=== PATIENT | female | born 1930 | race Caucasian/White ===

== ENCOUNTER 2018-11-28 18:20 | Inpatient (IN) | payer MEDICARE, OTHER ==
--- NOTE | 2018-11-28 18:30 | ED Physician Documentation ---
Fall - HISTORIAN Historian: patient - HPI Stated Complaint: fall at skilled nursing Chief Complaint: Fall Onset: just prior to arrival Where: home Context: other (they are not sure - lost balance ) Associated Symptoms:: no loss of consciousness Location of Pain/Injury: head, L shoulder Injury to Right Extremity: none Further Comments: yes (The skilled nursing calling report - states she started with confusion today. She was thought to have a possible UTI. The skilled nursing states she has no fever or other issues. She fell in room hit her head they did not witness any LOC) - ROS CONST: no problems GI/: denies: nausea, vomiting - PAST HX Past History: cardiac disease, diabetes Type 2 Allergies/Adverse Reactions: Allergies Allergy/AdvReac Type Severity Reaction Status Date / Time No Known Allergies Allergy Verified 11/28/18 18:32 Home Medications: Ambulatory Orders Medication Instructions Recorded Diltiazem HCl [Diltiazem 24Hr ER] 1 cap PO DAILY 06/16/15 Gabapentin 100 mg PO QID 06/16/15 Metoprolol Tartrate [Lopressor] 12.5 mg PO BID 06/16/15 Rivaroxaban [Xarelto] 15 mg PO BID 06/16/15 Acetaminophen [Tylenol 8 Hour] 1 tab PO PRN PRN 11/28/18 Ondansetron [Zuplenz] 1 tab PO PRN PRN 11/28/18 - SOCIAL HX Smoking History: non-smoker Alcohol Use: none Drug Use: none - FAMILY HX Family History: none - VITAL SIGNS Vital Signs: Vital Signs Temp Pulse Resp BP Pulse Ox 118/96 06/16/15 11:48 - REVIEWED ASSESSMENTS Nursing Assessment Reviewed: Yes Vitals Reviewed: Yes Progress - Progress Progress: 2140: discussed case with Dr Pastor will admit pt due to age, fall, and UTI (elevated WBC and Lactate) DG ED Results Lab/Radiology - Radiology Radiology Impressions: CT Brain without Contrast History: Fall. Technique: Transaxial CT was performed without contrast from the skull base to the vertex. Findings: Scattered bilateral white matter hypodensity is present, consistent with gliosis. Mild cerebral atrophy is present. The lateral ventricles are mildly dilated. No hemorrhage or edema-producing mass. The fourth ventricle is midline. Encephalomalacia seen in the left cerebellum. The paranasal sinuses are clear. No skull fracture. The mastoid air cells are well developed and well aerated. Impression: 1. 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 2. No acute cerebral pathology. Left shoulder,, three views History: Pain after fall. Findings: The osseous structures are intact without fracture. The humeral head is well seated within the glenoid fossa with narrowing the glenohumeral and acromioclavicular joints. A cardiac device present superimposed in the left chest wall. Impression: 1. No acute osseous abnormality. 2. Osteoarthritis. Electronically signed on Nov 28, 2018 6:56:38 PM FIBERGLASS DOWEL DRAWING OPERATOR by: Andrew Guardado - Orders Orders: ED Orders Category Date Time Status IV Started NOW Care 11/28/18 18:[address] BRAIN W/O CONTRAST Stat Exams 11/28/18 Ordered SHOULDER 2 VIEWS OR MORE [RAD] Stat Exams 11/28/18 Ordered CBC/PLATELET/DIFF Stat Lab 11/28/18 18:28 Ordered CMP Stat Lab 11/28/18 18:28 Ordered PT [PT-INR] Routine Lab 11/28/18 Ordered UA W/MICRO IF INDICATED Routine Lab 11/28/18 18:28 Ordered Fall Physical Exam - Physical Exam General Appearance: no acute distress, alert. No: c-collar SPORTS REPORTER Head: trauma (left frontal bruise ) Neck: non-tender, painless ROM Eye: IGNACIO ENT: nml external inspection Resp/CVS: chest non-tender, no ecchymosis, breath sounds nml Abdomen: soft, no distension Neuro: motor nml, mood/affect nml, bridge saw operator nml, reflexes nml, disoriented, other (alert and oriented to person. ) Skin: color nml Back: normal inspection Extremities: atraumatic, pelvis stable, hips non-tender, no pedal edema, nml ROM, nml color/temp, other (left shoulder with bruise (no pain with movement) Pulses + Cap refill + sensation + ) Joint: joints nml - Trever Coma Score Eyes Open: Spontaneous Speech: Confused Motor: Obeys Commands Discharge Clincal Impression: Confusion UTI (urinary tract infection) Qualifiers: Urinary tract infection type: site unspecified Hematuria presence: without hematuria Qualified Code(s): N39.0 - Urinary tract infection, site not specified Fall Qualifiers: Encounter type: initial encounter Qualified Code(s): W19.XXXA - Unspecified fall, initial encounter Condition: Fair Disposition: 09 ADMITTED INPATIENT Decision to Admit: [id number] Date of Decison to Admit: 11/28/18 Decision Time: 21:45
--- NOTE | 2018-11-28 18:57 | Diagnostic Imaging Report ---
MONTY BOYKIN [facility] [address] [facility].[address] [address] Report Submission Date: Nov 28, 2018 6:56:38 PM SCHOOL PSYCHOLOGICAL EXAMINER Patient Study Name: TONIA ONEAL Date: Nov 28, 2018 6:31:23 PM SCHOOL PSYCHOLOGICAL EXAMINER Modality Type: DX Gender: F Description: SHOULDER 2 VIEWS OR MORE : 31 Institution: [facility] Physician: MONTY BOYKIN Left shoulder,, three views History: Pain after fall. Findings: The osseous structures are intact without fracture. The humeral head is well seated within the glenoid fossa with narrowing the glenohumeral and acromioclavicular joints. A cardiac device present superimposed in the left chest wall. Impression: 1. No acute osseous abnormality. 2. Osteoarthritis. Electronically signed on Nov 28, 2018 6:56:38 PM SCHOOL PSYCHOLOGICAL EXAMINER by: Andrew RAYMOND
--- NOTE | 2018-11-28 18:57 | Diagnostic Imaging Report ---
MONTY BOYKIN [facility] [address] [facility] [address] [place], [place]. [address] Report Submission Date: Nov 28, 2018 6:44:24 PM MACHINE DYER Patient Study Name: TONIA ONEAL Date: Nov 28, 2018 6:26:39 PM MACHINE DYER Modality Type: CT\SR Gender: F Description: : 32 Institution: [facility] Physician: MONTY BOYKIN CT Brain without Contrast History: Fall. Technique: Transaxial CT was performed without contrast from the skull base to the vertex. Findings: Scattered bilateral white matter hypodensity is present, consistent with gliosis. Mild cerebral atrophy is present. The lateral ventricles are mildly dilated. No hemorrhage or edema-producing mass. The fourth ventricle is midline. Encephalomalacia seen in the left cerebellum. The paranasal sinuses are clear. No skull fracture. The mastoid air cells are well developed and well aerated. Impression: 1. 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 2. No acute cerebral pathology. Findings were discussed with Dr. Boykin in the ER at 6:44 p.m. MACHINE DYER. Electronically signed on Nov 28, 2018 6:44:24 PM MACHINE DYER by: Andrew RAYMOND
[2018-11-28] MEDS ORDERED: 0.9 % SODIUM CHLORIDE 1,000 ML IV ONE (19:17)
[2018-11-28 20:58] LABS: eGFR (Non-African) > 60
[2018-11-28 21:00] LABS: MEAN CORPUSCULAR HEMOGLOBIN 26.9 pg (28.0-34.0)
[2018-11-28 22:11] LABS: BASOPHILS % 1 % (0-2); EOSINOPHILS % 2 % (0-7); MONOCYTES % 9 % (0-11); SEGMENTED NEUTROPHILS % 70 % (39-79)
[2018-11-28 22:12] LABS: ANISOCYTOSIS 1+ (NEGATIVE); HYPOCHROMASIA 2+ (NEGATIVE)
[2018-11-28 22:13] LABS: PLT EST. EST. AGREES W/PLT CT
[2018-11-28] MEDS: 0.9 % SODIUM CHLORIDE 1,000 ML IV SCH (22:40)
[2018-11-28 22:41] LABS: APPEARANCE,URINE CLOUDY (CLEAR); COLOR,URINE AMBER (YELLOW); OCCULT BLOOD,URINE 1+ (NEGATIVE); PH URINE 5.5 (5.0 - 8.0)
[2018-11-28 22:52] VITALS: BMI 20.7
--- NOTE | 2018-11-29 05:02 | History and Physical Report ---
History of Present Illnes - History of Present Illness Reason for Visit: Confusion History of Present Illness: Patient presented to ER with increased confusion over past [address] [facility]. She was being worked up for a UTI when she fell and hit her head. No LOC. In the ER found to have a UTI and leukocytosis as well as some dehydration. Will be admitted to [facility] for treatment. She was admitted to [facility] in Aug 2018 with subarachnoid hemorrhage and transferred to [facility] after. Her PCP tells me she has had a steady decline for past 8 months. Also complained of L shoulder pain - xrays negative. - Past Medical History Cardiac: AFIB, CAD, HTN GERIATRIC NURSING ASSISTANT: CVA, Other (09/12/18 subarachnoid hemorrhage) Psych: Other (dementia) Musculoskeletal: Other (Frequent falls) - Past Surgical History Past Surgical History: Other (pacemaker) - Past Family History Mother Family History: Father Family History: Brother 1 Family History: CAD, DM, Hypertension - Past Social History Smoke: No Alcohol: None Drugs: None Lives: Shelter ([facility]) - Health Maintenance Health Maintenance: Influenza Vaccine, Pneumococcal Vaccine Influenza Vaccine: Current for this Influenza Season Pneumonia Vaccine: Yes Resuscitation Status: Resusciation Status Resuscitation Status Full Code Review of Systems - Review of Systems Constitutional: negative: Fever, Weakness Eyes: negative: pain ENT: negative: Ear Pain Respiratory: negative: Cough, Shortness of Breath Cardiovascular: negative: Chest Pain Gastrointestinal: negative: Nausea Genitourinary: Dysuria Musculoskeletal: negative: Neck Pain Skin: negative: Rash Neurological: negative: Weakness - Medications/Allergies Allergies/Adverse Reactions: Allergies Allergy/AdvReac Type Severity Reaction Status Date / Time No Known Allergies Allergy Verified 11/28/18 18:32 Home Medications: Home Medications Acetaminophen [Tylenol 8 Hour] 1 tab PO PRN PRN 11/28/18 Ondansetron [Zuplenz] 1 tab PO PRN PRN 11/28/18 Current Inpatient Medications: Current Inpatient Medications Acetaminophen (Tylenol) 650 mg PO Q6H PRN PRN Reason: Fever >101 Diltiazem HCl (Cardizem Cd) mg PO DAILY [facility] Gabapentin (Neurontin) 100 mg PO QID [facility]YLA LEVOFLOXACIN 500MG/D5W 100ML (500 mg/ PREMIX BAG) 100 mls @ 100 mls/hr IV DAILY CAYLA Stop: 12/13/18 08:59 Sodium Chloride (Normal Saline) 1,000 mls @ 100 mls/hr IV Q10H [facility] Last Admin: 11/28/18 22:40 Dose: 100 mls/hr Metoprolol Tartrate (Lopressor) 12.5 mg PO BID [facility] Rivaroxaban (Xarelto) 15 mg PO DAILY [facility] Exam - Exam Vital Signs: Vital Signs (72 hours) 11/28/18 11/28/18 11/28/18 18:20 19:09 22:12 Temperature 97.8 F Pulse Rate [ 87 70 70 Left Pulse ox] Respiratory 15 20 16 Rate Blood Pressure 120/69 [Left Arm] Blood Pressure 107/55 107/55 [Right Arm] O2 Sat by Pulse 93 92 97 Oximetry 11/28/18 11/28/18 11/29/18 22:15 22:29 01:53 Temperature 97.8 F 98.2 F 98.7 F Pulse Rate [ 70 88 71 Left Pulse ox] Respiratory 16 20 14 Rate Blood Pressure 120/69 107/49 [Left Arm] Blood Pressure 112/56 [Right Arm] O2 Sat by Pulse 97 96 97 Oximetry General: Alert HEENT: Atraumatic, PERRLA, EOMI, Mouth Mucous membr. moist/[place] Neck: Normal Range of Motion Lungs: Clear to auscultation, Normal air movement Cardiovascular: Regular rate, Murmur Abdomen: Normal bowel sounds, Soft, No tenderness Integumentary: Normal Extremities: No edema Neurological: Generalized Weakness Psych/Mental Status: Mental status NL, Mood NL. No: Appropriate Affect, Intact Judgment - Laboratory Results Laboratory Results: Laboratory Results 11/28/18 11/28/18 11/28/18 19:00 20:25 20:25 WBC 18.00 H RBC 4.65 Hgb 12.5 Hct 38.1 MCV 82.0 MCH 26.9 L MCHC 32.9 RDW 14.5 H Plt Count 149 Seg Neutrophils % 70 Band Neutrophils % 8 Lymphocytes % 8 L Monocytes % 9 Eosinophils % 2 Basophils % 1 Nucleated RBCs 0 Reactive Lymphocytes 2 Platelet Estimate Est. agrees w/plt ct Plt Morphology Comment Normal Hypochromasia 2+ H Poikilocytosis 1+ H Anisocytosis 1+ H RBC Morph Comment Abnormal H Sodium 137 Potassium 3.4 L Chloride 96 L Carbon Dioxide 28 BUN 36 H Creatinine 0.76 Estimated Creat Clear 61 Est GFR ( Amer) > 60 Est GFR (Non-Af Amer) > 60 Glucose 119 H Lactate Calcium 7.8 L Total Bilirubin 0.8 AST 28 ALT 22 Alkaline Phosphatase 107 Total Protein 6.4 Albumin 3.3 L Urine Color Ashley Urine Appearance Cloudy H Urine pH 5.5 Ur Specific [place] 1.025 Urine Protein 2+ H Urine Ketones 1+ H Urine Occult Blood 1+ H Urine Nitrite Pos Urine Bilirubin 1+ H Urine Urobilinogen 2.0 H Ur Leukocyte Esterase 3+ H Urine Glucose Negative 11/28/18 20:25 WBC RBC Hgb Hct MCV MCH MCHC RDW Plt Count Seg Neutrophils % Band Neutrophils % Lymphocytes % Monocytes % Eosinophils % Basophils % Nucleated RBCs Reactive Lymphocytes Platelet Estimate Plt Morphology Comment Hypochromasia Poikilocytosis Anisocytosis RBC Morph Comment Sodium Potassium Chloride Carbon Dioxide BUN Creatinine Estimated Creat Clear Est GFR ( Amer) Est GFR (Non-Af Amer) Glucose Lactate 3.2 H Calcium Total Bilirubin AST ALT Alkaline Phosphatase Total Protein Albumin Urine Color Urine Appearance Urine pH Ur Specific [place] Urine Protein Urine Ketones Urine Occult Blood Urine Nitrite Urine Bilirubin Urine Urobilinogen Ur Leukocyte Esterase Urine Glucose Assessment/Plan - Assessment/Plan (1) Confusion Status: Acute Current Visit: Yes Assessment: Suspect due to UTI. Will watch closely. CT head normal - on anticoagulation. (2) Fall Status: Acute Current Visit: Yes Qualifiers: Encounter type: initial encounter Qualified Code(s): W19.XXXA - Unspecified fall, initial encounter (3) UTI (urinary tract infection) Status: Acute Current Visit: Yes Qualifiers: Urinary tract infection type: site unspecified Hematuria presence: without hematuria Qualified Code(s): N39.0 - Urinary tract infection, site not specified Plan: Admit for IV levaquin. She was an incredibly hard lab draw (8 sticks) so blood cultures not done. IVF for hydration. Await urine cultures. (4) Atrial fibrillation Status: Acute Current Visit: Yes Qualifiers: Atrial fibrillation type: paroxysmal Qualified Code(s): I48.0 - Paroxysmal atrial fibrillation Plan: Given history of falls and of her subarachnoid hemorrhage I strongly encouraged PCP to stop xarelto. VTE Assessment - RISK FACTOR SCORE VTE RISK FACTOR SCORES: AGE OVER 60 YEARS, SEPSIS - RISK VTE MODERATE RISK: SCORE OF 2 (RISK PROXIMAL DVT 2-4%) PROPHYAXIS NEEDED
[2018-11-29 07:38] LABS: MEAN CORPUSCULAR HEMOGLOBIN 27.3 pg (28.0-34.0)
[2018-11-29 07:39] LABS: BASOPHILS % 0.7 (0.0-1.5); EOSINOPHILS % 1.8 % (0.0-6.8); MONOCYTES % 8.4 % (0.0-11.0); NEUTROPHILS # 10.8 # k/uL (1.4-7.7)
[2018-11-29 07:57] LABS: eGFR (Non-African) > 60
[2018-11-29] MEDS: ACETAMINOPHEN 325 MG TABLET PO PRN (08:05)
[2018-11-29] MEDS ORDERED: LEVOFLOXACIN 500MG/D5W 100ML 100 ML IV ONE (08:15)
[2018-11-29] MEDS: 0.9 % SODIUM CHLORIDE 1,000 ML IV SCH ×2 (08:23→16:07)
[2018-11-29] MEDS: LEVOFLOXACIN 500MG/D5W 100ML 500 MG in PREMIX BAG 1 BAG IV SCH (08:25)
[2018-11-29] MEDS ORDERED: DILTIAZEM HCL 180 MG CAP.ER.24H PO SCH (09:00)
[2018-11-29] MEDS: DILTIAZEM HCL 180 MG CAP.ER.24H PO SCH (09:16)
[2018-11-29] MEDS: METOPROLOL TARTRATE 25 MG TABLET PO SCH ×2 (09:16→21:32)
[2018-11-29] MEDS: RIVAROXABAN 15 MG TABLET PO SCH (09:16)
[2018-11-29] MEDS: GABAPENTIN 100 MG CAPSULE PO SCH ×4 (09:16→21:25)
[2018-11-29] MEDS ORDERED: POLYETHYLENE GLYCOL 3350 17 GM POWD.PACK PO PRN (13:52)
[2018-11-29] MEDS ORDERED: ONDANSETRON HCL 4 MG TAB.RAPDIS PO PRN (17:29)
[2018-11-30] MEDS: 0.9 % SODIUM CHLORIDE 1,000 ML IV SCH ×3 (02:18→23:28)
[2018-11-30] MEDS ORDERED: POTASSIUM CHLORIDE 20 MEQ TABLET.ER PO ONE ×2 (07:51→15:50)
--- NOTE | 2018-11-30 07:55 | Inpatient Progress Note ---
Subjective - Required Recertification Statement I anticipate X number of days because-include discharge plan: 1 - Review of Systems Subjective: Patient seems better today. Knows she is at [facility] and it's 2019 but then loses thoughts. Appetite ok. Objective - Exam Vitals and I&O: Vital Signs Temp 98.1 F 11/30/18 06:00 Pulse 70 11/30/18 06:00 Resp 18 11/30/18 07:00 BP 120/68 11/30/18 06:00 Pulse Ox 94 11/30/18 06:00 Intake & Output 11/29/18 11/29/18 11/30/18 11:59 23:59 11:59 Intake Total 240 1730 850 Output Total 450 Balance 240 1280 850 Intake: IV 1400 800 Left Forearm 1400 800 Oral 240 330 50 Output: Urine 450 Other: Voiding Method Bedside Commode Bedside Commode Bedside Commode # Voids 1 2 General: Alert, Oriented to Person, Oriented to Place, Oriented to Time, Cooperative, No acute distress Lungs: Clear to auscultation, Normal air movement, Speaks full Sentences Cardiovascular: Regular rate - Results Results: Laboratory Results WBC 14.10 K/ul (4.00-12.00) H 11/29/18 07:20 RBC 3.92 M/ul (3.90-5.20) 11/29/18 07:20 Hgb 10.7 g/dL (12.0-16.0) L 11/29/18 07:20 Hct 32.0 % (34.5-46.5) L 11/29/18 07:20 MCV 82.0 fl (80.0-100.0) 11/29/18 07:20 MCH 27.3 pg (28.0-34.0) L 11/29/18 07:20 MCHC 33.4 g/dL (30.0-36.0) 11/29/18 07:20 RDW 14.5 % (11.3-14.3) H 11/29/18 07:20 Plt Count 154 K/mm3 (130-400) 11/29/18 07:20 Neut % (Auto) 76.6 % (39.0-79.0) 11/29/18 07:20 Lymph % (Auto) 12.5 % (16.0-50.0) L 11/29/18 07:20 [place] % (Auto) 8.4 % (0.0-11.0) 11/29/18 07:20 Eos % (Auto) 1.8 % (0.0-6.8) 11/29/18 07:20 Baso % (Auto) 0.7 (0.0-1.5) 11/29/18 07:20 Neut # (Auto) 10.8 # k/uL (1.4-7.7) H 11/29/18 07:20 Lymph # (Auto) 1.8 # k/uL (0.6-4.0) 11/29/18 07:20 [place] # (Auto) 1.2 # k/uL (0.0-0.9) H 11/29/18 07:20 Eos # (Auto) 0.3 # k/uL (0.0-0.6) 11/29/18 07:20 Baso # (Auto) 0.1 # k/uL (0.0-0.5) 11/29/18 07:20 Seg Neutrophils % 70 % (39-79) 11/28/18 20:25 Band Neutrophils % 8 % (0-12) 11/28/18 20:25 Lymphocytes % 8 % (16-50) L 11/28/18 20:25 Monocytes % 9 % (0-11) 11/28/18 20:25 Eosinophils % 2 % (0-7) 11/28/18 20:25 Basophils % 1 % (0-2) 11/28/18 20:25 Nucleated RBCs 0 % (0-0) 11/28/18 20:25 Reactive Lymphocytes 2 % (0-5) 11/28/18 20:25 Platelet Estimate Est. agrees w/plt ct 11/28/18 20:25 Plt Morphology Comment Normal (NORMAL) 11/28/18 20:25 Hypochromasia 2+ (NEGATIVE) H 11/28/18 20:25 Poikilocytosis 1+ (NEGATIVE) H 11/28/18 20:25 Anisocytosis 1+ (NEGATIVE) H 11/28/18 20:25 RBC Morph Comment Abnormal (NORMAL) H 11/28/18 20:25 PT 11.0 Seconds (9.4-11.6) 11/29/18 07:20 INR 1.05 (0.9-1.2) 11/29/18 07:20 Sodium 139 mmol/L (136-145) 11/29/18 07:20 Potassium 3.0 mmol/L (3.5-5.1) L 11/29/18 07:20 Chloride 103 mmol/L (98-107) 11/29/18 07:20 Carbon Dioxide 26 mmol/L (22-30) 11/29/18 07:20 BUN 24 mg/dL (7-17) H 11/29/18 07:20 Creatinine 0.55 mg/dL (0.52-1.04) 11/29/18 07:20 Estimated Creat Clear 71 11/29/18 07:20 Est GFR ( Amer) > 60 (60-) 11/29/18 07:20 Est GFR (Non-Af Amer) > 60 (60-) 11/29/18 07:20 Glucose 100 mg/dL (74-106) 11/29/18 07:20 Lactate 3.2 U/L (0.7-2.1) H 11/28/18 20:25 Calcium 7.3 mg/dL (8.4-10.2) L 11/29/18 07:20 Total Bilirubin 0.9 mg/dL (0.2-1.3) 11/29/18 07:20 AST 20 U/L (15-46) 11/29/18 07:20 ALT 20 U/L (13-69) 11/29/18 07:20 Alkaline Phosphatase 80 U/L (38-126) 11/29/18 07:20 Total Protein 5.2 g/dL (6.3-8.2) L 11/29/18 07:20 Albumin 2.6 g/dL (3.5-5.0) L 11/29/18 07:20 Urine Color Ashley (YELLOW) 11/28/18 19:00 Urine Appearance Cloudy (CLEAR) H 11/28/18 19:00 Urine pH 5.5 (5.0 - 8.0) 11/28/18 19:00 Ur Specific [place] 1.025 (1.010-1.030) 11/28/18 19:00 Urine Protein 2+ mg/dL (NEGATIVE) H 11/28/18 19:00 Urine Ketones 1+ mg/dL (NEGATIVE) H 11/28/18 19:00 Urine Occult Blood 1+ (NEGATIVE) H 11/28/18 19:00 Urine Nitrite Pos (NEGATIVE) 11/28/18 19:00 Urine Bilirubin 1+ (NEGATIVE) H 11/28/18 19:00 Urine Urobilinogen 2.0 Eu (0.2-1.0) H 11/28/18 19:00 Ur Leukocyte Esterase 3+ (NEGATIVE) H 11/28/18 19:00 Urine Glucose Negative mg/dL (NEGATIVE) 11/28/18 19:00 Assessment/Plan - Assessment/Plan (1) Confusion Status: Acute Current Visit: Yes Plan: Improving. (2) Fall Status: Acute Current Visit: Yes Qualifiers: Encounter type: initial encounter Qualified Code(s): W19.XXXA - Unspecified fall, initial encounter (3) UTI (urinary tract infection) Status: Acute Current Visit: Yes Qualifiers: Urinary tract infection type: site unspecified Hematuria presence: without hematuria Qualified Code(s): N39.0 - Urinary tract infection, site not specified Plan: Urine culture won't be back until tomorrow. Continue levaquin until then. Change to po today. (4) Atrial fibrillation Status: Acute Current Visit: Yes Qualifiers: Atrial fibrillation type: paroxysmal Qualified Code(s): I48.0 - Paroxysmal atrial fibrillation Plan: BP has been soft. Stop metoprolol. Watch. Plan for d/c in am if all normal. (5) Hypokalemia Status: Acute Current Visit: Yes Plan: Replacing orally. REcheck today.
[2018-11-30] MEDS ORDERED: LEVOFLOXACIN 500MG/D5W 100ML 100 ML IV ONE (08:04)
[2018-11-30 08:31] LABS: MEAN CORPUSCULAR HEMOGLOBIN 27.4 pg (28.0-34.0)
[2018-11-30 08:32] LABS: BASOPHILS % 0.6 (0.0-1.5); MONOCYTES % 8.7 % (0.0-11.0); NEUTROPHILS # 9.2 # k/uL (1.4-7.7)
[2018-11-30] MEDS: DILTIAZEM HCL 180 MG CAP.ER.24H PO SCH (08:39)
[2018-11-30] MEDS: LEVOFLOXACIN 500MG/D5W 100ML 500 MG in PREMIX BAG 1 BAG IV SCH (08:40)
[2018-11-30] MEDS: RIVAROXABAN 15 MG TABLET PO SCH (08:40)
[2018-11-30] MEDS: GABAPENTIN 100 MG CAPSULE PO SCH ×4 (08:40→21:02)
[2018-11-30 08:43] LABS: eGFR (Non-African) > 60
[2018-12-01] MEDS: 0.9 % SODIUM CHLORIDE 1,000 ML IV SCH ×2 (01:31→11:04)
[2018-12-01] MEDS: ACETAMINOPHEN 325 MG TABLET PO PRN (03:05)
[2018-12-01] MEDS ORDERED: LEVOFLOXACIN 500MG/D5W 100ML 100 ML IV ONE (07:46)
[2018-12-01 08:39] LABS: eGFR (Non-African) > 60
[2018-12-01] MEDS: DILTIAZEM HCL 180 MG CAP.ER.24H PO SCH (09:27)
[2018-12-01] MEDS: RIVAROXABAN 15 MG TABLET PO SCH (09:27)
[2018-12-01] MEDS: GABAPENTIN 100 MG CAPSULE PO SCH (09:27)
[2018-12-01] MEDS: LEVOFLOXACIN 500MG/D5W 100ML 500 MG in PREMIX BAG 1 BAG IV SCH (09:28)
--- NOTE | 2018-12-01 09:38 | Discharge Summary ---
Discharge Summary - Discharge Sumary History of Present Illness: Patient presented to ER with increased confusion over past [address] [facility]. She was being worked up for a UTI when she fell and hit her head. No LOC. In the ER found to have a UTI and leukocytosis as well as some dehydration. Will be admitted to [facility] for treatment. She was admitted to [facility] in Aug 2018 with subarachnoid hemorrhage and transferred to [facility] after. Her PCP tells me she has had a steady decline for past 8 months. Also complained of L shoulder pain - xrays negative. Condition at Discharge: Stable Home Medications: Ambulatory Orders Medication Instructions Recorded Diltiazem HCl [Diltiazem 24Hr ER] 1 cap PO DAILY 06/16/15 Gabapentin 100 mg PO QID 06/16/15 Acetaminophen [Tylenol 8 Hour] 1 tab PO PRN PRN 11/28/18 Ondansetron [Zuplenz] 1 tab PO PRN PRN 11/28/18 Amoxicillin/Potassium Clav 1 each PO BID #14 tablet 12/01/18 [Augmentin 500-125 mg Tablet] Consultations this Visit: None Procedures this Visit: None Allergies/Adverse Reactions: Allergies Allergy/AdvReac Type Severity Reaction Status Date / Time No Known Allergies Allergy Verified 11/28/18 18:32 Discharge Summary: Patient admitted with UTI causing confusion. She was treated with IV levaquin while hospitalized and mentation improved as well as WBC return to normal. Due to lab issues, I did not have urine culture back on discharge (and NO IDEA when it would be back). So I checked with the correction about their culture and it was resistant to levaquin. Therefore she was discharged on Augmentin. Will do a Med A bed due to fall and weakness. I discussed with her PCP, Dominique Alford, about stopping xarelto due to h/o subarachnoid hemorrhage and falls. Her metoprolol was stopped due to BP of 100. I asked correction staff to watch her BP and pulse closely. Hospital Course: Discharge Dx: UTI. Confusion. Dementia. Afib. Falls. Disposition - REturn to [facility].
[2018-12-01 12:35] VITALS: BP 147/84
== END 2018-12-01 11:50 | disposition home or self-care (01) | DRG 641 ==
LOC: ED 18:20 → SOUTH 21:55
PROVIDERS: ADMIT Family Medicine; ATTEND Family Medicine
DX: E86.0 Dehydration (principal); N39.0 Urinary tract infection, site not specified; E87.6 Hypokalemia; E11.9 Type 2 diabetes mellitus without complications; I10 Essential (primary) hypertension; I48.0 Paroxysmal atrial fibrillation; W19.XXXA Unspecified fall, initial encounter; Y93.9 Activity, unspecified; Y92.129 Unspecified place in nursing home as the place of occurrence of the external cause
CPT/HCPCS: 36415; 51701; 70450; 73030; 80048; 80053; 81002; 83605; 85025; 85610; 87086; 93005; 99283; 99284; A9270; J1956; J7030; 99221; 99231; 99232; 99238; S1016

== ENCOUNTER 2019-03-25 19:54 | Outpatient (CLI) | payer MEDICARE, OTHER ==
[2019-02-20 03:29] VITALS: BP 155/74
[2019-04-10 17:56] LABS: APPEARANCE,URINE CLEAR (CLEAR); COLOR,URINE YELLOW (YELLOW); OCCULT BLOOD,URINE NEGATIVE (NEGATIVE); UROBILINOGEN URINE 0.2 Eu (0.2-1.0)
== END 2019-03-25 19:59 | disposition home or self-care (01) ==
LOC: LAB 19:54
PROVIDERS: ATTEND Nurse Practitioner Family
DX: N39.0 Urinary tract infection, site not specified (principal)
CPT/HCPCS: 81002; 87086

== ENCOUNTER 2019-05-06 19:41 | Outpatient (CLI) | payer MEDICARE, OTHER ==
[2019-02-20 03:29] VITALS: BP 155/74
[2019-05-06 20:07] LABS: APPEARANCE,URINE CLOUDY (CLEAR); COLOR,URINE YELLOW (YELLOW); OCCULT BLOOD,URINE 1+ (NEGATIVE); UROBILINOGEN URINE 0.2 Eu (0.2-1.0)
== END 2019-05-06 19:43 ==
LOC: LAB 19:41
PROVIDERS: ATTEND Nurse Practitioner Family
DX: N39.0 Urinary tract infection, site not specified (principal)
CPT/HCPCS: 81002; 87086; 87186

== ENCOUNTER 2019-06-21 10:10 | Outpatient (CLI) | payer MEDICARE, OTHER ==
[2019-02-20 03:29] VITALS: BP 155/74
[2019-06-21 10:12] LABS: APPEARANCE,URINE CLOUDY (CLEAR); COLOR,URINE YELLOW (YELLOW); OCCULT BLOOD,URINE NEGATIVE (NEGATIVE); PH URINE 6.5 (5.0 - 8.0); UROBILINOGEN URINE 0.2 Eu (0.2-1.0)
== END 2019-06-21 10:12 ==
LOC: LAB 10:10
PROVIDERS: ATTEND Nurse Practitioner Family
DX: N30.90 Cystitis, unspecified without hematuria (principal); G89.29 Other chronic pain
CPT/HCPCS: 81002; 87086; 87186

== ENCOUNTER 2019-10-11 06:00 | Outpatient (CLI) | payer MEDICARE, OTHER ==
[2019-02-20 03:29] VITALS: BP 155/74
[2019-10-11 09:06] LABS: APPEARANCE,URINE CLEAR (CLEAR); COLOR,URINE YELLOW (YELLOW); OCCULT BLOOD,URINE TRACE-INTACT (NEGATIVE)
== END 2019-10-11 06:05 ==
LOC: LAB 06:00
PROVIDERS: ATTEND Nurse Practitioner Family
DX: N39.0 Urinary tract infection, site not specified (principal); G89.29 Other chronic pain
CPT/HCPCS: 36415; 81002; 87086; 87186